=== PATIENT | female | born 1980 | race Caucasian/White ===

== ENCOUNTER 2018-11-24 13:50 | Emergency (ER) | payer MEDICAID, OTHER ==
[2018-11-24 13:51] VITALS: BMI 24.0
[2018-11-24 14:21] VITALS: RESP 28; O2SAT 100
[2018-11-24 14:40] LABS: BASO # 0.1 K/uL (0.0-0.2); BASO % 0.9 % (0.0-2.0); EOS # 0.1 K/uL (0.0-0.7); EOS % 1.7 % (0.0-4.0); HEMOGLOBIN 12.4 g/dL (11.0-16.0); LYMPH # 2.7 K/uL (1.0-4.3); LYMPH % 41.6 % (20.0-40.0); MEAN CORPUSCULAR HEMOGLOBIN 27.5 pg (27.0-31.0); MEAN CORPUSCULAR HGB CONC 32.4 g/dL (33.0-37.0); MEAN PLATELET VOLUME 9.5 fL (7.2-11.7); MONO # 0.4 K/uL (0.0-0.8); MONO % 6.7 % (0.0-10.0); NEUT # 3.2 K/uL (1.8-7.0); NEUT % 49.1 % (50.0-75.0); RBC 4.52 Mil/uL (3.80-5.20); WHITE BLOOD COUNT 6.5 K/uL (4.8-10.8)
[2018-11-24 14:55] LABS: ALB/GLOB RATIO 1.4 (1.0-2.1); ALBUMIN 4.2 g/dL (3.5-5.0); ALT/SGPT 10 U/L (9-52); AST/SGOT 20 U/L (14-36); BLOOD UREA NITROGEN 11 mg/dL (7-17); CALCIUM 9.3 mg/dl (8.6-10.4); GFR NON-AFRICAN AMERICAN > 60
[2018-11-24 14:59] LABS: SQUAMOUS EPITHIAL 2 /hpf (0-5); URINE BILIRUBIN NEGATIVE (NEGATIVE); URINE BLOOD NEGATIVE (NEGATIVE); URINE CLARITY Clear (Clear); URINE COLOR Yellow (YELLOW); URINE GLUCOSE (UA) NORMAL (Normal); URINE LEUKOCYTE ESTERASE TRACE Leu/uL (Negative); URINE PROTEIN NEGATIVE (NEGATIVE); URINE UROBILINOGEN NORMAL mg/dL (0.2-1.0)
[2018-11-24 15:02] LABS: HCG,QUALITATIVE URINE NEGATIVE (NEGATIVE)
[2018-11-24 15:07] LABS: CK-MB 0.36 ng/mL (0.0-3.38)
--- NOTE | 2018-11-24 15:22 | RAD ---
HISTORY: SOB COMPARISON: Chest x-ray performed 04/17/14 TECHNIQUE: Chest, one view. FINDINGS: LUNGS: No focal consolidation. Please note that chest x-ray has limited sensitivity for the detection of pulmonary masses. PLEURA: No significant pleural effusion identified. No definite pneumothorax . CARDIOVASCULAR: Heart size appears within normal limits. OSSEOUS STRUCTURES: No acute osseous abnormality identified. VISUALIZED UPPER ABDOMEN: Unremarkable. OTHER FINDINGS: None. IMPRESSION: No focal consolidation.
[2018-11-24 15:30] LABS: BARBITURATES, UR NEGATIVE (NEGATIVE); BENZODIAZEPINES, UR NEGATIVE (NEGATIVE); OPIATES, UR NEGATIVE (NEGATIVE); PHENCYCLIDINE, UR NEGATIVE (NEGATIVE)
--- NOTE | 2018-11-24 16:12 | C.PDOC ---
History Of Present Illness 38 year old female presents to the ED for evaluation of shortness of breath which has been worsening for 9 days. Patient states she initially experienced shortness of breath with exertion (like walking up stairs), but symptoms have n ow become worse. She reports left-sided chest pain that sometimes radiates to her back. She was evaluated by her PMD and recommended outpatient CXR, which she has not undergone yet. Patient admits to history of anxiety, but states she is not under any particular stress at this time She denies history of smoking, asthma, COPD, PE/DVT, denies recent surgeries or prolonged immobilizations, denies taking any oral contraceptives. Time Seen by Provider: 11/24/18 14:08 Chief Complaint (Nursing): Respiratory Distress History Per: Patient History/Exam Limitations: no limitations Onset/Duration Of Symptoms: Days (9) Current Symptoms Are (Timing): Worse Quality: "Pain" Current Respiratory Medications: See Home Med List Associated Symptoms: Chest Pain Past Medical History Reviewed: Historical Data, Nursing Documentation, Vital Signs Vital Signs: Last Vital Signs Temp 97.5 F L 11/24/18 14:13 Pulse 83 11/24/18 14:13 Resp 28 H 11/24/18 14:13 BP 113/83 11/24/18 14:13 Pulse Ox 100 11/24/18 14:13 - Medical History PMH: No Chronic Diseases, Gastritis Denies: Depression, Chronic Kidney Disease Surgical History: No Surg Hx Family History: States: Unknown Family Hx - Social History Hx Tobacco Use: No Hx Alcohol Use: No Hx Substance Use: No - Immunization History Hx Tetanus Toxoid Vaccination: No Hx Influenza Vaccination: No Hx Pneumococcal Vaccination: No Review Of Systems Cardiovascular: Positive for: Chest Pain Respiratory: Positive for: Shortness of Breath, SOB with Excertion Musculoskeletal: Positive for: Back Pain Physical Exam - Physical Exam Appears: Non-toxic, No Acute Distress, Other (appears slightly anxious ) Skin: Normal Color, Warm, Dry Head: Atraumatic, Normacephalic Eye(s): bilateral: Normal Inspection Oral Mucosa: Moist Neck: Supple Chest: Symmetrical, No Deformity, No Tenderness Cardiovascular: Rhythm Regular, No Murmur Respiratory: No Rales, No Rhonchi, No Wheezing, Other (converstional dyspnea noted ) Extremity: Capillary Refill (less than 2 seconds ), No Other (edema to bilateral lower extremities ) Pulses: Left Dorsalis Pedis: Normal, Right Dorsalis Pedis: Normal Neurological/Psych: Oriented x3, Normal Speech, Normal Cognition ED Course And Treatment - Laboratory Results Result Diagrams: 11/24/18 14:35 11/24/18 14:35 Lab Results: D-Dimer, Quantitative 308 ng/mlDDU (0-243) H 11/24/18 14:59 Troponin I < 0.0120 ng/mL (0.00-0.120) 11/24/18 14:35 Total Bilirubin 0.3 mg/dL (0.2-1.3) 11/24/18 14:35 AST 20 U/L (14-36) 11/24/18 14:35 ALT 10 U/L (9-52) 11/24/18 14:35 Alkaline Phosphatase 59 U/L (38-126) 11/24/18 14:35 Total Protein 7.3 g/dL (6.3-8.3) 11/24/18 14:35 Albumin 4.2 g/dL (3.5-5.0) 11/24/18 14:35 Globulin 3.1 gm/dL (2.2-3.9) 11/24/18 14:35 Albumin/Globulin Ratio 1.4 (1.0-2.1) 11/24/18 14:35 Urine Color Yellow (YELLOW) 11/24/18 14:47 Urine Clarity Clear (Clear) 11/24/18 14:47 Urine pH 8.0 (5.0-8.0) 11/24/18 14:47 Ur Specific [place] 1.011 (1.003-1.030) 11/24/18 14:47 Urine Protein Negative mg/dL (NEGATIVE) 11/24/18 14:47 Urine Glucose (UA) Normal mg/dL (Normal) 11/24/18 14:47 Urine Ketones Negative mg/dL (NEGATIVE) 11/24/18 14:47 Urine Blood Negative (NEGATIVE) 11/24/18 14:47 Urine Nitrate Negative (NEGATIVE) 11/24/18 14:47 Urine Bilirubin Negative (NEGATIVE) 11/24/18 14:47 Urine Urobilinogen Normal mg/dL (0.2-1.0) 11/24/18 14:47 Ur Leukocyte Esterase Trace Sharee/uL (Negative) 11/24/18 14:47 Urine WBC (Auto) < 1 /hpf (0-5) 11/24/18 14:47 Urine RBC (Auto) < 1 /hpf (0-3) 11/24/18 14:47 Ur Squamous Epith Cells 2 /hpf (0-5) 11/24/18 14:47 Urine HCG, Qual Negative (NEGATIVE) 11/24/18 14:47 Urine HCG, Qual Negative (NEGATIVE) 11/24/18 14:47 O2 Sat by Pulse Oximetry: 100 (on RA) Pulse Ox Interpretation: Normal - Other Rad CXR X-Ray: Viewed By Me, Read By Radiologist Interpretation: HISTORY: SOB. COMPARISON: Chest x-ray performed 04/17/14. TECHNIQUE: Chest, one view. FINDINGS: LUNGS: No focal consolidation. Please note that chest x-ray has limited sensitivity for the detection of pulmonary masses. PLEURA: No significant pleural effusion identified. No definite pneumothorax . CARDIOVASCULAR: Heart size appears within normal limits. OSSEOUS STRUCTURES: No acute osseous abnormality identified. VISUALIZED UPPER ABDOMEN: Unremarkable. OTHER FINDINGS: None. IMPRESSION: No focal consolidation. Progress Note: Bloodwork, urinalysis, CXR, CT Angio chest, and EKG ordered and reviewed. Disposition Counseled Patient/Family Regarding: Studies Performed, Diagnosis, Need For Followup, Rx Given - Disposition Referrals: Zoila Jones MD [Medical Doctor] - Disposition: HOME/ ROUTINE Disposition Time: 18:30 Condition: STABLE Additional Instructions: FOLLOW UP WITHY YOUR DOCTOR IN 1-2 DAYS RETURN TO ER IMMEDIATELY IF YOU HAVE WORSENING OR CONCERNING SYMPTOMS Instructions: Chest Pain That Is Not Caused by the Heart (DC) Forms: Stream[employer] (Pashto) Print Language: ROMANIAN - Clinical Impression Clinical Impression: Dyspnea, Non-cardiac chest pain - Scribe Statement The provider has reviewed the documentation as recorded by the Scribe (Shireen Casarez) Provider Attestation: All medical record entries made by the Scribe were at my direction and personally dictated by me. I have reviewed the chart and agree that the record accurately reflects my personal performance of the history, physical exam, medical decision making, and the department course for this patient. I have also personally directed, reviewed, and agree with the discharge instructions and disposition.
[2018-11-24] MEDS ORDERED: Iodixanol 320 MG/ML 100 ML BOTTLE IV ONE (16:54)
[2018-11-24 17:55] VITALS: BP 110/73; PULSE 75
--- NOTE | 2018-11-24 18:09 | CT ---
Date of service: 11/24/2018 CTA chest PE protocol Indication: CP, SOB, DDIMER ELEVATED, R/O TX Technique: Contiguous axial images were obtained through the chest with intravenous contrast enhancement. Sagittal and coronal reconstructions were generated and reviewed. This CT exam was performed using 1 or more of the following dose reduction techniques: Automated exposure control, adjustment of the MAA and/or kV according to patient size, and/or use of iterative reconstruction technique. IV contrast: 100 mL Visipaque 320 IV Radiation dose (DLP): 403.18 MGy-cm. Comparison: Chest x-ray performed 11/24/18 Findings: Visualized portions of the inferior thyroid gland appear unremarkable. The mediastinal and hilar vascular structures appear within normal limits. The heart appears within normal limits of size. No large central or segmental pulmonary embolus evident. No focal consolidation. No pleural effusion. No pneumothorax. No suspicious pulmonary nodules measuring greater than 5 mm. Limited visualized portions of the upper abdomen appear grossly unremarkable. No acute osseous abnormality is detected. Impression: No large central or segmental pulmonary embolus identified.
[2018-11-24 18:41] VITALS: TEMP 98
--- NOTE | 2018-11-25 17:51 | CARD ---
APPROVED REPORT Date of service: 11/24/2018 EKG Measurement Heart [id number] <Conclusion> Normal sinus rhythm Normal ECG
== END 2018-11-24 18:41 | disposition home or self-care (01) ==
LOC: C.ER 13:50
DX: R06.00 Dyspnea, unspecified (principal); R07.89 Other chest pain
CPT/HCPCS: 71045; 71275; 80053; 80324; 80345; 80346; 80349; 80353; 80358; 80361; 81001; 82550; 82553; 83880; 83992; 84484; 84703; 85025; 85378; 93005; 99285; Q9967